=== PATIENT | female | born 1985 ===

== ENCOUNTER 2018-01-16 21:57 | Emergency (ER) | payer MEDICAID ==
[2018-01-16 22:08] VITALS: BP 130/76; PULSE 67; RESP 18; TEMP 97.6; O2SAT 99
--- NOTE | 2018-01-16 22:39 | C.PDOC ---
History Of Present Illness Patient reports that she tripped over a railing at [employer] at 4:30pm today injuring the left shoulder and right knee. The patient reports that afterwards she was ambulatory and went to work, but the pain has worsened over the past several hours prompting visit. Denies other injuries, numbness, weakness, chest pain, SOB, neck pain, back pain, headache. Time Seen by Provider: 01/16/18 22:24 Chief Complaint (Nursing): Upper Extremity Problem/Injury History Per: Patient History/Exam Limitations: no limitations Onset/Duration Of Symptoms: Hrs (4:30PM ) Current Symptoms Are (Timing): Still Present Exacerbating Factor(s): Nothing Recent travel outside of the [place]: No Past Medical History Reviewed: Historical Data, Nursing Documentation, Vital Signs Vital Signs: Last Vital Signs Temp 97.6 F 01/16/18 22:03 Pulse 67 01/16/18 22:03 Resp 18 01/16/18 22:03 BP 130/76 01/16/18 22:03 Pulse Ox 99 01/17/18 00:17 - Medical History PMH: Anemia (recvd blood transfusions) - [facility] Procedures INJECT/INFUSE NEC (04/13/13) PACKED CELL TRANSFUSION (11/05/13) Family History: States: Unknown Family Hx - Social History Hx Tobacco Use: Yes Hx Alcohol Use: Yes Hx Substance Use: No - Immunization History Hx Tetanus Toxoid Vaccination: No Hx Influenza Vaccination: No Hx Pneumococcal Vaccination: No Review Of Systems Constitutional: Negative for: Fever, Chills Cardiovascular: Negative for: Chest Pain Respiratory: Negative for: Shortness of Breath Gastrointestinal: Negative for: Nausea, Vomiting Musculoskeletal: Positive for: Other (Injuring of left shoulder and right knee) . Negative for: Neck Pain, Back Pain Neurological: Negative for: Weakness, Numbness, Headache Physical Exam - Physical Exam Appears: Non-toxic, No Acute Distress Skin: Normal Color, Warm, Other ((+) 1CM Abrasion to the left lateral shoulder, 1.5cm abrasion to the right knee) Head: Atraumatic, Normacephalic Eye(s): bilateral: Normal Inspection, PERRL Oral Mucosa: Moist Neck: No Midline Cervical Tenderness, No Paracervical Tenderness, Supple Chest: Symmetrical, No Tenderness Cardiovascular: Rhythm Regular Respiratory: Normal Breath Sounds, No Decreased Breath Sounds, No Rales, No Rhonchi, No Wheezing Gastrointestinal/Abdominal: Soft, No Tenderness, No Distention Back: No CVA Tenderness, No Vertebral Tenderness, No Paraspinal Tenderness Extremity: Tenderness (Tenderness of left lateral shoulder, mid humerus. Tenderness to the right anterior Knee), Swelling (No swelling to left lateral shoulder, mid humerus. No swelling to the right knee), Other (Limited ROM secondary to pain of left shoulder. Full ROM of right knee. Normal hand, wrist, and elbow. ) Neurological/Psych: Oriented x3, Normal Speech, Normal Cognition, Normal Motor, Normal Sensation, Other (Normal Strength ) Gait: Steady ED Course And Treatment O2 Sat by Pulse Oximetry: 99 (RA) Pulse Ox Interpretation: Normal Medical Decision Making Medical Decision Making: Ordered X-Ray of right Knee and Left shoulder. The xrays are negative for fracture or dislocation. On re-exam, The patient reports improvement of symptoms. Ambulatory in the ED with steady gait. Sling was applied to left shoulder for possible sprain. Disposition - Disposition Referrals: [facility] [Outside] Disposition: HOME/ ROUTINE Disposition Time: 23:40 Condition: FAIR Additional Instructions: Follow up with the medical doctor within 1-2 days without fail. Return if worsened. 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 - Scribe Statement The provider has reviewed the documentation as recorded by the Chrisibbryan Marvin All medical record entries made by the Genaro were at my direction and personally dictated by me. I have reviewed the chart and agree that the record accurately reflects my personal performance of the history, physical exam, medical decision making, and the department course for this patient. I have also personally directed, reviewed, and agree with the discharge instructions and disposition.
--- NOTE | 2018-01-17 08:05 | RAD ---
Right knee three views History: Injury. Comparison: None available. Findings No evidence for acute displaced fracture or dislocation. Small suprapatellar joint effusion. Impression: Small suprapatellar joint effusion. If pain persists, consider MRI.
--- NOTE | 2018-01-17 08:07 | RAD ---
Left humerus two views History: Arm injury and pain. Comparison: None available. Findings: No evidence of acute displaced fracture or dislocation. Somewhat limited evaluation of the elbow given the field of view. Question focal lucency at the greater tuberosity, nonspecific. Impression: Negative acute. If pain persists, consider MRI.
--- NOTE | 2018-01-17 08:09 | RAD ---
Left shoulder three views History: Shoulder injury. Comparison: None available. Findings: No evidence for acute displaced fracture or dislocation. Glenohumeral and acromioclavicular joint spaces are preserved. Impression: Negative acute. If pain persists, consider MRI.
== END 2018-01-16 23:55 | disposition home or self-care (01) ==
LOC: C.ER 21:57 → SUPCPDRO 21:57 → C.ER 23:55
DX: S40.022A Contusion of left upper arm, initial encounter (principal); S43.402A Unspecified sprain of left shoulder joint, initial encounter; S80.01XA Contusion of right knee, initial encounter; W01.0XXA Fall on same level from slipping, tripping and stumbling without subsequent striking against object, initial encounter; Y92.89 Other specified places as the place of occurrence of the external cause

== ENCOUNTER 2018-06-28 17:01 | Emergency (ER) | payer OTHER, MEDICAID ==
[2018-06-28 17:25] VITALS: BMI 24.2
[2018-06-28 17:31] VITALS: BP 107/78; PULSE 82; RESP 20; TEMP 98.5; O2SAT 98
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
--- NOTE | 2018-06-29 10:31 | RAD ---
Date of service: 06/28/2018 PROCEDURE: Cervical Spine Radiographs. HISTORY: Pain. COMPARISON: None. FINDINGS: BONES: Alignment maintained. No fracture. Dens Intact. DISC SPACES: Normal. SOFT TISSUES: Normal. No prevertebral soft tissue swelling. OTHER FINDINGS: None. IMPRESSION: Normal cervical spine radiographs
== END 2018-06-28 19:15 | disposition home or self-care (01) ==
LOC: C.ER 17:01
DX: S16.1XXA Strain of muscle, fascia and tendon at neck level, initial encounter (principal); V49.50XA Passenger injured in collision with unspecified motor vehicles in traffic accident, initial encounter